=== PATIENT | female | born 1955 | race Asian ===

== ENCOUNTER 2017-02-25 16:31 | Inpatient (IN) | payer OTHER ==
[~2017-02-25] VITALS: Ht 154.9 cm; Wt 54.5 kg
--- NOTE | 2017-02-25 16:42 | NUR ---
PT AMBULATORY BACK TO ED LOBBY TO AWAIT BED AVAILABILITY, PT IN NO DISTRESS, RESPS EVEN AND UNLABORED, ABLE TO SPEAK IN COMPLETE SENTENCES.
--- NOTE | 2017-02-25 17:32 | NUR ---
PT IS A 61 YEAR OLD FEMALE, PRESENTS TO ED WITH C/O SHORTNESS OF BREATH AFTER ANXIETY EPISODES. PT REPORTS AFTER SHORTNESS OF BREATH, SHE GETS COLD CHILLS. PT BREATHING IS EVEN AND UNLABORED, NO S/S OF RESPRAITORY DISTRESS. SPEECH IS CLEAR AND APPROPRIATE. PT A/O X4. PT SPEAKS LATVI[place] DAUGHTER AT BEDSIDE TRANSLATING. NO FEVER, NO N/V/D/C REPORTED. PT DENIES ANY COUGH. MSE PERFORMED BY DR. ZAMORANO.
--- NOTE | 2017-02-25 17:54 | NUR ---
TECH DOING EKG AT BEDSIDE.
[2017-02-25 18:07] LABS: BASOPHIL % 0.6 % (0-2); PLATELET COUNT 177 x10^3mcL (130-400)
[2017-02-25 18:15] LABS: CARBON DIOXIDE 28.7 mmol/L (21-32); CHLORIDE SERUM 101 mmol/L (98-107); CREATININE SERUM 0.7 mg/dL (0.6-1.0); GFR1 > 60 mL/min; GLUCOSE SERUM 141 mg/dL (74-106); POTASSIUM SERUM 3.4 mmol/L (3.5-5.1); SODIUM SERUM 137 mmol/L (136-145)
[2017-02-25 18:21] LABS: ALBUMIN 3.9 g/dL (3.4-5.0); ALKALINE PHOSPHATASE 70 U/L (46-116); ALT/SGPT 21 U/L (14-59); AST/SGOT 20 U/L (15-37); BILIRUBIN TOTAL 0.5 mg/dL (0.20-1.00); LIPASE 118 IU/L (73-393); TOTAL PROTEIN, SERUM 7.8 g/dL (6.4-8.2); TRIGLYCERIDES 49 mg/dL (<150)
[2017-02-25 18:27] LABS: CHOLESTEROL 213 mg/dL (<200); CHOLESTEROL/HDL RATIO 2.6; HDL CHOLESTEROL 82 mg/dL (40-60)
[2017-02-25 18:32] LABS: T3 TOTAL 1.02 ng/mL
--- NOTE | 2017-02-25 18:35 | NUR ---
PT GIVEN 1ST NITRO 0.4MG SUBLINGUAL TAB. PT REPORTS CHEST PAIN OF 8/10.
--- NOTE | 2017-02-25 18:40 | NUR ---
PT GIVEN 2ND TAB OF NITRO 0.4MG SUBLINGUAL. PT REPORTS CHEST PAIN A 5/10.
[2017-02-25 18:51] LABS: microscopic required? YES; urine erythrocyte 1+ (NEGATIVE)
--- NOTE | 2017-02-25 18:54 | NUR ---
PT GIVEN 3RD TAB OF NITRO 0.4 MG SUBLINGUALLY. PT REPROTS CHEST PAIN AT 10
[2017-02-25 19:05] LABS: FREE T4 1.11 ng/dL (0.76-1.46); FREE THYROXINE INDEX 3.2 ug/dL (1.4-4.5); T4(THYROXINE) 9.6 ug/dL (4.7-13.3)
--- NOTE | 2017-02-25 19:25 | NUR ---
REPORT CALLED TO DELICIA PULLIAM, SHE WILL ASSUME CARE PRIMARY RN POST TRASNFER.
[2017-02-25 19:59] LABS: MAGNESIUM 2.3 mg/dL (1.8-2.4); PHOSPHOROUS 3.9 mg/dL (2.5-4.9)
[2017-02-25 20:26] VITALS: BP 113/55
--- NOTE | 2017-02-25 20:44 | NUR ---
REC'D AOX4, SPEECH CLEAR. DAUGHTER AT THE BEDSIDE. DENIES CP. ATTACHED TELE 20, NOTED SB. ON RA, NO SOB NOTED. IV SITE WNL. ORIENTED TO ROOM AND SURROUNDINGS. CALL LIGHT WITHIN REACH, PROVIDED REPORT TO DELICIA PULLIAM FOR CONTINUITY OF CARE.
--- NOTE | 2017-02-25 22:10 | NUR ---
C/O HEADACHE ON SCALE 3/10, TYLENOL 650MG GIVEN PO PRN MEDICATION. TOLERATED FLUIDS ORALLY. NO S/S OF ASPIRATION NOTED. KEPT CLEAN AND DRY.
--- NOTE | 2017-02-26 00:10 | NUR ---
EYES CLSOED, NO FACIAL GRIAMCING NOTED. REAPIRATION EVEN AND UNLABORED. NO S/S OF PAIN/DISCOMFORT. .
--- NOTE | 2017-02-26 03:00 | NUR ---
POTASSIUM LEVEL 3.4, DR WILLOUGHBY GAVE NEW ORDER AND CARRIED OUT. K-RIDER 20MG IV IN PROGRESS.PT TOLERATING WELL
--- NOTE | 2017-02-26 06:28 | NUR ---
DENIES ANY CHEST PAIN /DISCOMFORT AT THIS TIME. IVF INFUSING WELL VIA PERIPHERAL LINE AT THE LFA . IV SITE CLEAR AND INTACT. NO S/S OF INFILTRATION NOTED. ALL NEEDS ATTENDED.
[2017-02-26 06:52] VITALS: BP 110/59
--- NOTE | 2017-02-26 07:40 | NUR ---
RECEIVED PT IN BED A/A/OX4 DENIES SAMAYOA. RESP EVEN AND UNLABORED WITH CLEAR BS BILAT. DENIES ANY SOB/CP/PRESSURE AT THIS TIME. NSR ON TELE HR IN 60S. NO EDEMA NOTED. ABD SOFT, NONTENDER WITH ACTIVE BS X4. DENIES ANY N/V AT THIS TIME. VOIDING FREELY. AMBULATORY. CALL LIGHT IN REACH NEEDS ATTENDED TO.
[2017-02-26 09:29] VITALS: BP 107/42
[2017-02-26 09:58] LABS: BASOPHIL % 0.3 % (0-2); PLATELET COUNT 181 x10^3mcL (130-400); RED CELL DISTRIBUTION WIDTH 14.1 % (11.5-14.5)
[2017-02-26 10:06] LABS: CALCIUM 8.5 mg/dL (8.5-10.1); CARBON DIOXIDE 24.3 mmol/L (21-32); CHLORIDE SERUM 104 mmol/L (98-107); CREATININE SERUM 0.9 mg/dL (0.6-1.0); GFR1 > 60 mL/min; GLUCOSE SERUM 236 mg/dL (74-106); PHOSPHOROUS 3.1 mg/dL (2.5-4.9); POTASSIUM SERUM 3.2 mmol/L (3.5-5.1); SODIUM SERUM 140 mmol/L (136-145)
[2017-02-26 12:54] VITALS: BP 111/51
--- NOTE | 2017-02-26 14:00 | NUR ---
PT RESTING COMFORTABLY AT THIS TIME. DENIES ANY DISCOMFORT. CALL LIGHT IN REACH NEEDS ATTENDED TO.
--- NOTE | 2017-02-26 14:45 | NUR ---
ECHOCARDIOGRAM COMPLETED
--- NOTE | 2017-02-26 16:45 | NUR ---
PT PROVIDED WITH WRITEN EDUCATION ON DIABETES.
[2017-02-26 16:55] VITALS: BP 133/67
--- NOTE | 2017-02-26 17:30 | NUR ---
MESSAGE SENT VIA [employer] TO DR. DODSON REGARDING ORDER FOR KCL TO BE STARTED TOMORROW PT WITH K LEVEL OF 3.2 TODAY. AWAITING CHANGES IN ORDERES.
[2017-02-26 17:37] LABS: AMPHETAMINE QUAL UR NONE DETECTED (NEG <=1000)
--- NOTE | 2017-02-26 18:25 | NUR ---
PT RESTING COMFORTABLY AT THIS TIME. DENIES ANY DISCOMFORT. NO CP/SOB REPORTED. IVF INFUSING. CALL LIGHT IN REACH. NEEDS ATTENDED TO.
--- NOTE | 2017-02-26 20:00 | NUR ---
AWAKE AND VERBALLY RESPONISVE. ABLE TO MAKE NEEEDS KNOWN. RESPIRATION EVEN AND UNLABORED. C/O HEADACHE ON SCALE 3/10, TYLENO 650MG GIVEN PO PRN MEDICATION. WILL CONTINUE TO MONITOR.
[2017-02-26 21:09] VITALS: BP 113/53
--- NOTE | 2017-02-27 00:10 | NUR ---
AMBULATED TO BATHROOM FOR PERSONAL NEEDS. KEPT CLEAN AND DRY. TOLERATED FLUIDS ORALLY. NO S/S OF ASPIRATION NOTED.
[2017-02-27 05:22] VITALS: BP 109/51
--- NOTE | 2017-02-27 06:15 | NUR ---
ALL DUE MEDICATIONS GIVEN AND WELL TOLERATED. DENIES ANY PAIN/DISCOMFORT AT THIS TIME. ALL NEEDS ATTENDED.
[2017-02-27 07:06] LABS: BASOPHIL % 0.1 % (0-2); PLATELET COUNT 162 x10^3mcL (130-400)
[2017-02-27 07:18] LABS: CALCIUM 8.3 mg/dL (8.5-10.1); CARBON DIOXIDE 24.5 mmol/L (21-32); CHLORIDE SERUM 108 mmol/L (98-107); CREATININE SERUM 0.5 mg/dL (0.6-1.0); GFR1 > 60 mL/min; GLUCOSE SERUM 137 mg/dL (74-106); POTASSIUM SERUM 3.9 mmol/L (3.5-5.1); SODIUM SERUM 141 mmol/L (136-145)
--- NOTE | 2017-02-27 07:20 | NUR ---
RECEIVED PT IN BED A/A/OX4 DENIES SAMAYOA. RESP EVEN AND UNLABORED WITH CLEAR BS BILAT. DENIES ANY SOB/CP/PRESSURE AT THIS TIME. NO EDEMA NOTED. ABD SOFT, NONTENDER WITH ACTIVE BS X4. DENIES ANY N/V AT THIS TIME. AMBULATORY. CALL LIGHT IN REACH NEEDS ATTENDED TO.
--- NOTE | 2017-02-27 08:50 | NUR ---
PT MADE AWARE OF D/C PLAN FOR TODAY.
[2017-02-27 09:14] VITALS: BP 108/49
--- NOTE | 2017-02-27 09:30 | NUR ---
MESSAGE SENT TO DR. DODSON TO CHECK IF STILL WANTED TO GIVE AM DOSE OF KCL TO BE GIVEN THIS AM. K LEVEL 3.9. AWAITING NEW ORDERS.
[2017-02-27] MEDS ORDERED: MEDDP PO (10:31)
[2017-02-27] MEDS ORDERED: VENTOLIN H0.09 MG/A1 INH (10:32)
[2017-02-27] MEDS ORDERED: LIPI10 PO (10:42)
[2017-02-27 12:16] VITALS: BP 108/49
--- NOTE | 2017-02-27 13:53 | NUR ---
PT PROVIDED WITH D/C HOME INSTRUCTIONS. GIVEN MEDICATION/PRESCRIPTION EDUCATION. INSTRUCTED TO CALL PCP TOMORROW AND SCHEDULE F/U APPT WITH IN 3-5 DAYS. PT VERBALIZED UNDERSTANDING OF INSTRUCTIONS. IV D/C'D CATHETER INTACT. PT AMBULATED TO LOBBY WITH ALL PERSONAL BELONGINGS IN HAND FREE OF ANY APPARENT DISTRESS.
== END 2017-02-27 13:53 | disposition home or self-care (01) | DRG 141 ==
LOC: ED 16:31 → DU 18:48 → MU 02-27 10:28
PROVIDERS: Family Medicine; Specialist; ADMIT Family Medicine
DX: J45.901 Unspecified asthma with (acute) exacerbation (principal); N17.0 Acute kidney failure with tubular necrosis; M94.0 Chondrocostal junction syndrome [Tietze]; E87.6 Hypokalemia; E78.5 Hyperlipidemia, unspecified; R31.9 Hematuria, unspecified; R82.71 Bacteriuria; I24.9 Acute ischemic heart disease, unspecified
CPT/HCPCS: 36600; 83880; 84439; 94150; J2920; J2930; J3480; J7030; J7620; Q0092

== ENCOUNTER 2018-01-02 11:48 | Inpatient (IN) | payer OTHER ==
[~2018-01-02] VITALS: Ht 157.5 cm; Wt 55.3 kg
[~2018-01-02 11:48] MED LIST: LIPI10 PO; MEDDP PO; VENTOLIN H0.09 MG/A1 INH
[2018-01-02 12:51] LABS: BASOPHIL % 0.4 % (0-2); CALCIUM 8.9 mg/dL (8.5-10.1); CARBON DIOXIDE 33.2 mmol/L (21-32); CHLORIDE SERUM 97 mmol/L (98-107); CREATININE SERUM 0.8 mg/dL (0.6-1.0); GFR1 > 60 mL/min; GLUCOSE SERUM 115 mg/dL (74-106); PLATELET COUNT 208 x10^3mcL (130-400); POTASSIUM SERUM 3.7 mmol/L (3.5-5.1); RED CELL DISTRIBUTION WIDTH 13.6 % (11.5-14.5); SODIUM SERUM 135 mmol/L (136-145)
[2018-01-02 12:57] LABS: ALKALINE PHOSPHATASE 69 U/L (46-116); ALT/SGPT 30 U/L (14-59); AST/SGOT 19 U/L (15-37); BILIRUBIN TOTAL 0.6 mg/dL (0.20-1.00); LIPASE 159 IU/L (73-393); TOTAL PROTEIN, SERUM 7.9 g/dL (6.4-8.2); TRIGLYCERIDES 87 mg/dL (<150)
[2018-01-02 12:58] LABS: microscopic required? NO
[2018-01-02 13:01] LABS: CHOLESTEROL 222 mg/dL (<200); HDL CHOLESTEROL 73 mg/dL (40-60)
[2018-01-02 13:03] LABS: FREE T4 1.22 ng/dL (0.76-1.46); FREE THYROXINE INDEX 3.9 ug/dL (1.4-4.5); T4(THYROXINE) 11.2 ug/dL (4.7-13.3)
[2018-01-02 13:08] LABS: urine erythrocyte NEGATIVE (NEGATIVE)
[2018-01-02] MEDS ORDERED: LORAZEPAM0.5 MG PO (13:21)
[2018-01-02 13:31] LABS: T3 TOTAL 0.9 ng/mL
[2018-01-02] MEDS ORDERED: ZOF4 PO (14:10)
[2018-01-02] MEDS ORDERED: OMEPRAZOLE40 M1 PO (14:12)
[2018-01-02 14:24] LABS: MAGNESIUM 2.5 mg/dL (1.8-2.4); PHOSPHOROUS 3.5 mg/dL (2.5-4.9)
[2018-01-02 14:48] VITALS: BP 132/63
[2018-01-02 14:50] VITALS: Ht 157.5 cm; Wt 55.3 kg
[2018-01-02 21:05] VITALS: BP 122/59
[2018-01-03 05:34] VITALS: BP 112/61
[2018-01-03 07:18] LABS: BASOPHIL % 0.7 % (0-2); PLATELET COUNT 196 x10^3mcL (130-400); RED CELL DISTRIBUTION WIDTH 13.6 % (11.5-14.5)
[2018-01-03 07:36] LABS: CALCIUM 8.5 mg/dL (8.5-10.1); CARBON DIOXIDE 29.1 mmol/L (21-32); CHLORIDE SERUM 104 mmol/L (98-107); CREATININE SERUM 0.7 mg/dL (0.6-1.0); GFR1 > 60 mL/min; GLUCOSE SERUM 107 mg/dL (74-106); MAGNESIUM 2.5 mg/dL (1.8-2.4); POTASSIUM SERUM 4.3 mmol/L (3.5-5.1); SODIUM SERUM 139 mmol/L (136-145)
[2018-01-03 08:15] VITALS: BP 119/64
[2018-01-03 13:20] VITALS: BP 103/55
[2018-01-03 14:43] LABS: AMPHETAMINE QUAL UR NONE DETECTED (NEG <=1000)
[2018-01-03] MEDS ORDERED: LIPI10 PO (15:02)
[2018-01-03] MEDS ORDERED: GOOD SENSE ASPI81 M3 PO (15:03)
[2018-01-03] MEDS ORDERED: FLUOXETINE HYDR10 M1 PO (15:29)
[2018-01-03 17:06] VITALS: BP 109/61
== END 2018-01-03 18:10 | disposition home or self-care (01) | DRG 243 ==
LOC: ED 11:48 → DU 13:11
PROVIDERS: Family Medicine; Specialist
DX: K21.9 Gastro-esophageal reflux disease without esophagitis (principal); J45.901 Unspecified asthma with (acute) exacerbation; F32.9 Major depressive disorder, single episode, unspecified; E78.5 Hyperlipidemia, unspecified; Z82.49 Family history of ischemic heart disease and other diseases of the circulatory system; R73.03 Prediabetes; F41.9 Anxiety disorder, unspecified
CPT/HCPCS: 83880; 84439; J2405; J7030; J7620; Q0092

== ENCOUNTER 2019-04-30 22:38 | Emergency (ER) | payer OTHER ==
[~2019-04-30] VITALS: Ht 152.4 cm; Wt 54.9 kg
[~2019-04-30 22:38] MED LIST changes: +FLUOXETINE HYDR10 M1 PO; +GOOD SENSE ASPI81 M3 PO; +LORAZEPAM0.5 MG PO; +OMEPRAZOLE40 M1 PO; +ZOF4 PO
[2019-04-30 22:59] VITALS: Ht 152.4 cm; Wt 54.9 kg
[2019-05-01 00:06] LABS: BASOPHIL % 0.4 % (0-2); PLATELET COUNT 168 x10^3mcL (130-400); RED CELL DISTRIBUTION WIDTH 13.9 % (11.5-14.5)
[2019-05-01 00:08] LABS: CALCIUM 9.1 mg/dL (8.5-10.1); CARBON DIOXIDE 27.4 mmol/L (21-32); CHLORIDE SERUM 103 mmol/L (98-107); CREATININE SERUM 0.7 mg/dL (0.6-1.0); GFR1 > 60 mL/min; GLUCOSE SERUM 113 mg/dL (74-106); POTASSIUM SERUM 3.6 mmol/L (3.5-5.1); SODIUM SERUM 142 mmol/L (136-145)
[2019-05-01 00:10] LABS: ALBUMIN 3.7 g/dL (3.4-5.0); ALKALINE PHOSPHATASE 52 U/L (46-116); ALT/SGPT 31 U/L (14-59); AST/SGOT 21 U/L (15-37); BILIRUBIN TOTAL 0.4 mg/dL (0.20-1.00); LIPASE 91 IU/L (73-393); TOTAL PROTEIN, SERUM 7.4 g/dL (6.4-8.2)
[2019-05-01 02:51] VITALS: BP 135/62
== END 2019-05-01 02:51 | disposition home or self-care (01) ==
LOC: ED 22:38
PROVIDERS: Emergency Medicine
DX: G45.9 Transient cerebral ischemic attack, unspecified (principal); G45.4 Transient global amnesia; R07.89 Other chest pain; F32.9 Major depressive disorder, single episode, unspecified; R10.9 Unspecified abdominal pain; R19.7 Diarrhea, unspecified
CPT/HCPCS: J1885; J2405; J7030; Q0092